=== PATIENT | female | born 1955 | race Caucasian/White ===

== ENCOUNTER 2020-09-25 19:05 | Emergency (ER) | payer OTHER ==
[2020-09-25] MEDS ORDERED: NA CHLORIDE 0.9% 1,000 ML ONE ×2 (19:57→20:11)
--- NOTE | 2020-09-25 20:04 | RAD REPORT ---
EXAM DESCRIPTION: RAD - Chest Single View - 09/25/2020 7:54 pm CLINICAL HISTORY: ABDOMINAL DISTENTION Chest pain. COMPARISON: No comparisons FINDINGS: Portable technique limits examination quality. The lungs are grossly clear. The heart is normal in size. No displaced fractures. IMPRESSION: No acute intrathoracic process suspected.
[2020-09-25 20:11] LABS: Protime INR 0.86
[2020-09-25 20:12] LABS: Basophils % 0.5 % (0-1.3); Hematocrit 37.6 % (36.0-45.0); Lymphocytes % 26.7 % (15.3-44.8); MPV 7.6 fL (7.6-11.3); RBC Red Blood Cell Count 3.68 M/uL (3.86-4.86)
[2020-09-25 20:23] LABS: ALT/SGPT 25 U/L (12-78); AST/SGOT 28 U/L (15-37); Albumin 4.3 g/dL (3.4-5.0); Alkaline Phosphatase 82 U/L (45-117); BUN Blood Urea Nitrogen 14 mg/dL (7-18); Bicarbonate 26 mmol/L (21-32); Bilirubin Direct 0.1 mg/dL (0-0.2); Bilirubin Total 0.4 mg/dL (0.2-1.0); Glucose Level 84 mg/dL (74-106); Lipase 124 U/L (73-393); Magnesium 1.6 mg/dL (1.8-2.4); NT PRO-BNP 126 pg/mL (<125); Potassium 3.4 mmol/L (3.5-5.1); Protein, Total 7.7 g/dL (6.4-8.2); Sodium Level 137 mmol/L (136-145); Troponin (Emerg Dept Use Only) < 0.02 ng/mL (0.0-0.045)
--- NOTE | 2020-09-25 20:46 | RAD REPORT ---
EXAM DESCRIPTION: CTAbdomen Pelvis W Contrast - 09/25/2020 8:33 pm CLINICAL HISTORY: Abdominal pain. Abd pain;Abdominal distention COMPARISON: No comparisons TECHNIQUE: Biphasic CT imaging of the abdomen and pelvis was performed with 100 ml non-ionic IV cont rast. All CT scans are performed using dose optimization technique as appropriate and may include automated exposure control or mA/KV adjustment according to patient size. FINDINGS: The inferior lung coto are mildly emphysematous. Small hiatal hernia. Mild diffuse fatty liver is present. The spleen, pancreas, adrenal glands and kidneys are within norm al limits. No bowel obstruction, free air, free fluid or abscess. Normal appendix. No evidence of significant lymphadenopathy. No suspicious bony findings. IMPRESSION: No acute intra-abdominal or pelvic finding. Normal appendix. Fatty liver.
[2020-09-25 20:53] LABS: Urine Blood TRACE (NEG); Urine Glucose NEGATIVE (NEG); Urine Protein NEGATIVE (NEG); Urine Specific Gravity <1.005 (1.005-1.030)
--- NOTE | 2020-09-25 21:35 | EDPHYS ---
Physician Documentation [facility] Name: Lulu Barnes Age: 64 yrs Sex: Female : 1955 Arrival Date: 09/25/2020 Time: 19:09 Bed 5 Private MD: ED Physician Ken Armando HPI: 09/25 21:29 This 64 yrs old Female presents to ER via Ambulatory with complaints of maryan Abdominal Pain. 21:29 The patient presents with abdominal pain in the upper abdomen, in the lower abdomen. maryan Onset: The symptoms/episode began/occurred 2 day(s) ago. The symptoms do not radiate. Associated signs and symptoms: none. The symptoms are described as intermittent. Modifying factors: The symptoms are alleviated by nothing, the symptoms are aggravated by movement. Severity of pain: At its worst the pain was mild in the emergency department the pain is unchanged. The patient has not experienced similar symptoms in the past. Historical: - Allergies: 19:29 Morphine; and all deritives; ll1 - PMHx: 19:29 Hypertension; thick heart muscle; High Cholesterol; Diverticulitis; ll1 - PSHx: 19:29 Hysterectomy; colon resection; breast CA-lumpectomy R breast; ll1 - Immunization history:: Flu vaccine is up to date. - Social history:: Smoking status: Patient denies any tobacco usage or history of. - Family history:: not pertinent. ROS: 21:29 Constitutional: Negative for fever, chills, and weight loss, Eyes: Negative for injury, maryan pain, redness, and discharge, ENT: Negative for injury, pain, and discharge, Neck: Negative for injury, pain, and swelling, Cardiovascular: Negative for chest pain, palpitations, and edema, Respiratory: Negative for shortness of breath, cough, wheezing, and pleuritic chest pain, Back: Negative for injury and pain, : Negative for injury, bleeding, discharge, and swelling, MS/Extremity: Negative for injury and deformity, Skin: Negative for injury, rash, and discoloration, Neuro: Negative for headache, weakness, numbness, tingling, and seizure, Psych: Negative for depression, anxiety, suicide ideation, homicidal ideation, and hallucinations, Allergy/Immunology: Negative for hives, rash, and allergies, Endocrine: Negative for neck swelling, polydipsia, polyuria, polyphagia, and marked weight changes, Hematologic/Lymphatic: Negative for swollen nodes, abnormal bleeding, and unusual bruising. 21:29 Abdomen/GI: Positive for abdominal pain, of the right upper quadrant and left upper quadrant. Exam: 21:29 Constitutional: This is a well developed, well nourished patient who is awake, alert, maryan and in no acute distress. Head/Face: Normocephalic, atraumatic. Eyes: Pupils equal round and reactive to light, extra-ocular motions intact. Lids and lashes normal. Conjunctiva and sclera are non-icteric and not injected. Cornea within normal limits. Periorbital areas with no swelling, redness, or edema. ENT: Nares patent. No nasal discharge, no septal abnormalities noted. Tympanic membranes are normal and external auditory canals are clear. Oropharynx with no redness, swelling, or masses, exudates, or evidence of obstruction, uvula midline. Mucous membranes moist. Neck: Trachea midline, no thyromegaly or masses palpated, and no cervical lymphadenopathy. Supple, full range of motion without nuchal rigidity, or vertebral point tenderness. No Meningismus. Chest/axilla: Normal chest wall appearance and motion. Nontender with no deformity. No lesions are appreciated. Cardiovascular: Regular rate and rhythm with a normal S1 and S2. No gallops, murmurs, or rubs. Normal PMI, no JVD. No pulse deficits. Respiratory: Lungs have equal breath sounds bilaterally, clear to auscultation and percussion. No rales, rhonchi or wheezes noted. No increased work of breathing, no retractions or nasal flaring. Back: No spinal tenderness. No costovertebral tenderness. Full range of motion. Skin: Warm, dry with normal turgor. Normal color with no rashes, no lesions, and no evidence of cellulitis. MS/ Extremity: Pulses equal, no cyanosis. Neurovascular intact. Full, normal range of motion. Neuro: Awake and alert, GCS 15, oriented to person, place, time, and situation. Cranial nerves II-XII grossly intact. Motor strength 5/5 in all extremities. Sensory grossly intact. Cerebellar exam normal. Normal gait. Psych: Awake, alert, with orientation to person, place and time. Behavior, mood, and affect are within normal limits. 21:29 Abdomen/GI: Inspection: abdomen appears normal, Bowel sounds: normal, Palpation: mild abdominal tenderness, in the right upper quadrant and left upper quadrant, Liver: no appreciated palpable abnormalities, Hernia: not appreciated. 21:29 Musculoskeletal/extremity: DVT Exam: No signs of deep vein thrombosis. no pain, no swelling, no tenderness, negative Homans' sign noted on exam, no appreciated bluish discoloration, no erythema, no increased warmth. 21:38 ECG was reviewed by the Attending Physician. maryan Vital Signs: 19:26 BP 130 / 84; Pulse 67; Resp 16; Temp 98.1; Pulse Ox 97% on R/A; Weight 61.23 kg; Height ll1 5 ft. 6 in. (167.64 cm); Pain 8/10; 21:00 BP 132 / 81; Pulse 64; Resp 18; Pulse Ox 100% on R/A; wh 22:46 BP 123 / 78; Pulse 80; Resp 18; Pulse Ox 100% on R/A; mg2 19:26 Body Mass Index 21.79 (61.23 kg, 167.64 cm) ll1 MDM: 19:31 Patient medically screened. [facility] 21:32 Differential diagnosis: AAA, cholecystitis, Cholelithiasis, diverticulitis, gastritis, maryan Herpes Zoster, non-specific abd pain, pancreatitis, urinary tract infection. Data reviewed: vital signs, nurses notes, lab test result(s), EKG, radiologic studies, CT scan, plain films. Data interpreted: court monitor: rate is 67 beats/min, rhythm is regular, Pulse oximetry: on room air is 97 %. Test interpretation: by ED physician or midlevel provider: ECG, plain radiologic studies. Counseling: I had a detailed discussion with the patient and/or guardian regarding: the historical points, exam findings, and any diagnostic results supporting the discharge/admit diagnosis, lab results, radiology results, the need for outpatient follow up, for definitive care, a family practitioner, a general surgeon. 09/25 19:36 Order name: Basic Metabolic Panel; Complete Time: 20:29 [facility] 09/25 19:36 Order name: CBC with Diff; Complete Time: 20:29 [facility] 09/25 19:36 Order name: LFT's; Complete Time: 20:29 [facility] 09/25 19:36 Order name: Magnesium; Complete Time: 20:29 [facility] 09/25 19:36 Order name: NT PRO-BNP; Complete Time: 20:29 maryan 09/25 19:36 Order name: PT-INR; Complete Time: 20:29 maryan 09/25 19:36 Order name: Troponin (emerg Dept Use Only); Complete Time: 20:29 maryan 09/25 19:36 Order name: XRAY Chest (1 view); Complete Time: 20:29 maryan 09/25 19:36 Order name: Lipase; Complete Time: 20:29 maryan 09/25 19:36 Order name: CT Abd/Pelvis - IV Contrast Only; Complete Time: 21:28 maryan 09/25 19:36 Order name: Urine Culture maryan 09/25 19:49 Order name: Urine Dipstick--Ancillary (enter results); Complete Time: 21:28 tt3 09/25 22:34 Order name: COVID-19 : Document "Date of Symptom Onset" if Symptomatic. mg2 09/25 19:36 Order name: EKG; Complete Time: 19:37 maryan 09/25 19:36 Order name: Cardiac monitoring; Complete Time: 19:39 maryan 09/25 19:36 Order name: EKG - Nurse/Tech; Complete Time: 19:50 maryan 09/25 19:36 Order name: IV Saline Lock; Complete Time: 19:39 maryan 09/25 19:36 Order name: Labs collected and sent; Complete Time: 19:39 maryan 09/25 19:36 Order name: O2 Per Protocol; Complete Time: 19:40 maryan 09/25 19:36 Order name: O2 Sat Monitoring; Complete Time: 19:40 maryan 09/25 19:36 Order name: Urine Dipstick-Ancillary (obtain specimen); Complete Time: 19:50 [facility] EC:38 Rate is 61 beats/min. Rhythm is regular. QRS [place] is Normal. [place] interval is normal. QRS maryan interval is normal. QT interval is normal. No Q waves. T waves are Normal. No ST changes noted. Clinical impression: NSR w/ Non-specific ST/T Changes and No evidence of ischemia. Interpreted by me. Reviewed by me. Administered Medications: 19:39 Drug: NS 0.9% 1000 ml Route: IV; Rate: 125 ml/hr; Site: left antecubital; mg2 22:51 Follow up: Response: No adverse reaction; IV Status: Completed infusion wh 21:43 Drug: Magnesium Sulfate 1 grams Route: IVPB; Infused Over: 1 hrs; Site: left mg2 antecubital; 22:51 Follow up: Response: No adverse reaction; IV Status: Completed infusion 21:53 Drug: Potassium Effervescent Tablet 25 mEq Route: PO; 22:52 Follow up: Response: No adverse reaction 21:55 Drug: Pepcid 20 mg Route: IVP; Site: left antecubital; 22:52 Follow up: Response: No adverse reaction 21:57 Drug: TORadol 30 mg Route: IVP; Site: left antecubital; 22:52 Follow up: Response: No adverse reaction wh 22:52 Follow up: Response: No adverse reaction; Pain is decreased Disposition: 09/25/20 21:34 Discharged to Home. Impression: Abdominal tenderness, Hypokalemia, Hypomagnesemia. - Condition is Stable. - Discharge Instructions: Abdominal Pain, Adult, Potassium Content of Foods, Hypomagnesemia, Abdominal Pain, Adult, [id number], Hypokalemia. - Prescriptions for Bentyl 20 mg Oral Tablet - take 1 tablet by ORAL route every 6 hours As needed; 20 tablet. Pepcid 20 mg Oral Tablet - take 1 tablet by ORAL route every 12 hours for 10 days; 20 tablet. - Medication Reconciliation Form, Thank You Letter, Antibiotic Education, Prescription Opioid Use form. - Follow up: Private Physician; When: 2 - 3 days; Reason: Recheck today's complaints, Continuance of care, Re-evaluation by your physician. Follow up: Ranjit Hernandez MD; When: 2 - 3 days; Reason: Recheck today's complaints, Re-evaluation by your physician. - Problem is new. - Symptoms have improved. Signatures: Dispatcher [employer] EDMS Ken Armando MD MD cha Habalo, Winsy, RN RN Jesus Zelaya RN RN [facility] [place] Alondra Coppola RN RN ll1 Corrections: (The following items were deleted from the chart) 21:36 21:34 09/25/2020 21:34 Discharged to Home. Impression: Abdominal tenderness. Condition maryan is Stable. Forms are Medication Reconciliation Form, Thank You Letter, Antibiotic Education, Prescription Opioid Use. Follow up: Private Physician; When: 2 - 3 days; Reason: Recheck today's complaints, Continuance of care, Re-evaluation by your physician. Follow up: Ranjit Hernandez; When: 2 - 3 days; Reason: Recheck today's complaints, Re-evaluation by your physician. Problem is new. Symptoms have improved. maryan 22:58 21:36 09/25/2020 21:34 Discharged to Home. Impression: Abdominal tenderness; wh Hypokalemia; Hypomagnesemia. Condition is Stable. Forms are Medication Reconciliation Form, Thank You Letter, Antibiotic Education, Prescription Opioid Use. Follow up: Private Physician; When: 2 - 3 days; Reason: Recheck today's complaints, Continuance of care, Re-evaluation by your physician. Follow up: Ranjit Hernandez; When: 2 - 3 days; Reason: Recheck today's complaints, Re-evaluation by your physician. Problem is new. Symptoms have improved. maryan
--- NOTE | 2020-09-25 21:35 | ER ---
Nurse's Notes [facility] Name: Lulu Barnes Age: 64 yrs Sex: Female : 1955 Arrival Date: 09/25/2020 Time: 19:09 Bed 5 Private MD: Diagnosis: Abdominal tenderness;Hypokalemia;Hypomagnesemia Presentation: 09/25 19:26 Chief complaint: Patient states: RLQ abd pain since Tuesday night. + nausea, no fever. ll1 Coronavirus screen: Client denies travel out of the [place] in the last 14 days. At this time, the client does not indicate any symptoms associated with coronavirus-19. Ebola Screen: Patient denies travel to an Ebola-affected area in the 21 days before illness onset. Initial Sepsis Screen: Does the patient meet any 2 criteria? No. Patient's initial sepsis screen is negative. Does the patient have a suspected source of infection? Yes: Acute abdominal pain. Risk Assessment: Do you want to hurt yourself or someone else? Patient reports no desire to harm self or others. Onset of symptoms was September 23, 2020. 19:26 Method Of Arrival: Ambulatory ll1 19:26 Acuity: CAROL 3 ll1 Historical: - Allergies: 19:29 Morphine; and all deritives; ll1 - PMHx: 19:29 Hypertension; thick heart muscle; High Cholesterol; Diverticulitis; ll1 - PSHx: 19:29 Hysterectomy; colon resection; breast CA-lumpectomy R breast; ll1 - Immunization history:: Flu vaccine is up to date. - Social history:: Smoking status: Patient denies any tobacco usage or history of. - Family history:: not pertinent. Screenin:38 Abuse screen: Denies threats or abuse. Denies injuries from another. Nutritional mg2 screening: No deficits noted. Tuberculosis screening: No symptoms or risk factors identified. Fall Risk IV access (20 points). Assessment: 19:37 General: Appears in no apparent distress. comfortable, Behavior is calm, cooperative. mg2 Pain: Complains of pain in abdomen. Neuro: Level of Consciousness is awake, alert, obeys commands, Oriented to person, place, time, situation. Cardiovascular: Capillary refill < 3 seconds Patient's skin is warm and dry. Respiratory: Airway is patent Respiratory effort is even, unlabored, Respiratory pattern is regular, symmetrical. GI: Bowel sounds present X 4 quads. Abd is soft Abdomen is tender to palpation in right lower quadrant. : EENT: No signs and/or symptoms were reported regarding the EENT system. Derm: Skin is intact, is healthy with good turgor, Skin is pink, warm \T\ dry. normal. Musculoskeletal: Circulation, motion, and sensation intact. Capillary refill < 3 seconds. 21:00 Reassessment: Patient appears in no apparent distress at this time. Patient and/or wh family updated on plan of care and expected duration. Pain level reassessed. Patient is alert, oriented x 3, equal unlabored respirations, skin warm/dry/pink. 22:30 Reassessment: Patient appears in no apparent distress at this time. Patient and/or wh family updated on plan of care and expected duration. Pain level reassessed. Patient is alert, oriented x 3, equal unlabored respirations, skin warm/dry/pink. Patient states feeling better. Patient states symptoms have improved. Vital Signs: 19:26 BP 130 / 84; Pulse 67; Resp 16; Temp 98.1; Pulse Ox 97% on R/A; Weight 61.23 kg; Height ll1 5 ft. 6 in. (167.64 cm); Pain 8/10; 21:00 BP 132 / 81; Pulse 64; Resp 18; Pulse Ox 100% on R/A; wh 22:46 BP 123 / 78; Pulse 80; Resp 18; Pulse Ox 100% on R/A; mg2 19:26 Body Mass Index 21.79 (61.23 kg, 167.64 cm) ll1 ED Course: 19:09 Patient arrived in ED. as 19:28 Triage completed. ll1 19:30 Arm band placed on. ll1 19:31 Ken Armando MD is Attending Physician. [facility] 19:32 Jesus Zelaya RN is Primary Nurse. mg2 19:39 Patient has correct armband on for positive identification. Door closed. Warm blanket mg2 given. 19:39 No provider procedures requiring assistance completed. Inserted saline lock: 20 gauge mg2 in left antecubital area, using aseptic technique. Blood collected. 19:57 XRAY Chest (1 view) In Process Unspecified. EDMS 20:33 CT Abd/Pelvis - IV Contrast Only In Process Unspecified. EDMS 21:34 Kovacev, Ranjit, MD is Referral Physician. maryan 22:47 IV discontinued, intact, bleeding controlled, No redness/swelling at site. Pressure mg2 dressing applied. Administered Medications: 19:39 Drug: NS 0.9% 1000 ml Route: IV; Rate: 125 ml/hr; Site: left antecubital; mg2 22:51 Follow up: Response: No adverse reaction; IV Status: Completed infusion 21:43 Drug: Magnesium Sulfate 1 grams Route: IVPB; Infused Over: 1 hrs; Site: left mg2 antecubital; 22:51 Follow up: Response: No adverse reaction; IV Status: Completed infusion 21:53 Drug: Potassium Effervescent Tablet 25 mEq Route: PO; 22:52 Follow up: Response: No adverse reaction 21:55 Drug: Pepcid 20 mg Route: IVP; Site: left antecubital; 22:52 Follow up: Response: No adverse reaction 21:57 Drug: TORadol 30 mg Route: IVP; Site: left antecubital; 22:52 Follow up: Response: No adverse reaction 22:52 Follow up: Response: No adverse reaction; Pain is decreased Outcome: 21:34 Discharge ordered by . [facility] 22:47 Discharged to home ambulatory. mg2 22:47 Condition: stable 22:47 Discharge instructions given to patient, Instructed on discharge instructions, follow up and referral plans. medication usage, Demonstrated understanding of instructions, follow-up care, medications, Prescriptions given X 2. 22:58 Patient left the ED. Signatures: Dispatcher [employer] [facility] Ken Armando MD MD cha Martinez, Amelia as Habalo, Winsy, RN RN Jesus Zelaya RN RN [facility] [place] Alondra Coppola RN RN ll1 Corrections: (The following items were deleted from the chart) 19:40 19:39 Inserted saline lock: 20 gauge in right antecubital area, using aseptic mg2 technique. Blood collected. mg2 22:58 22:33 Reassessment: patient advised for admission. [facility]
[2020-09-25] MEDS ORDERED: MAGNESIUM SULFATE 1 gm IVPB 0 GM/0 ML BAG IV ONE (21:56)
[2020-09-25] MEDS ORDERED: MAGNESIUM SULFATE 1 gm IVPB 1 GM/100 ML BAG IV ONE (21:59)
[2020-09-25] MEDS ORDERED: FAMOTIDINE 20 MG/2 ML VIAL IV ONE (22:10)
[2020-09-25] MEDS ORDERED: POTASSIUM 25 MEQ EFFERV TAB ONE (22:10)
[2020-09-25] MEDS ORDERED: KETOROLAC 30 MG/ML INJ ONE (22:10)
[2020-09-25 23:43] VITALS: TEMP 98.1
[2020-09-25 23:45] VITALS: O2SAT 100
[2020-09-25 23:46] VITALS: BP 123/78
== END 2020-09-25 22:58 | disposition home or self-care (01) ==
LOC: ER 19:05
DX: R10.819 Abdominal tenderness, unspecified site (principal); E87.6 Hypokalemia; E83.42 Hypomagnesemia; I10 Essential (primary) hypertension; E78.00 Pure hypercholesterolemia, unspecified; Z85.3 Personal history of malignant neoplasm of breast
CPT/HCPCS: 96365; 96361; 93005; 85025; 87086; 80048; 36415; 83735; 85610; 82565; 80076; 81003; 84484; 83690; 83880; 74177; 71045; 96375; 99284; Q9967; J3475; J7030 ×2; 87088